=== PATIENT | female | born 1985 ===

== ENCOUNTER 2017-04-25 18:16 | Inpatient (IN) | payer OTHER ==
[~2017-04-25] VITALS: Ht 165.1 cm; Wt 59.9 kg
[2017-04-25] VITALS (15 sets, daily range): BP systolic 102–140; BP diastolic 64–79; PULSE 70–104; RESP 18; TEMP 98.3
[2017-04-25] MEDS: LACTATED RINGER'S 1000 ML INJ 1,000 ML IV SCH ×2 (19:35→21:46)
[2017-04-25] MEDS ORDERED: LACTATED RINGER'S 1000 ML INJ 1,000 ML IV PRN (20:03)
--- NOTE | 2017-04-25 20:05 | HHI.HP ---
History & Physical H&P [facility] OB ED Note (Detail) Patient Name: Magdalene Brooks Unit Number: [id number] Date of : 1985 Patient Status: Admitted Inpatient Attending Doctor: Nishi Good MD HPI HPI Chief Complaint leakage of fluid Date Seen: Apr 25, 2017 Travel History International Travel<30 Days: No Contact w/Intl Traveler<30Days: No Known Affected Area: No History of Present Illness HPI This is a 31y/o at 40w1d who presents to the [facility] with reports of leakage of clear fluid at 3:30p, with contractions q 5-10 minutes apart. She denies vaginal bleeding with reports of active movements. care with Dr. Berkowitz, no records for review, care uncomplicated per patient. Para: 0 : 1 History (Limited) History Past Medical History Narrative Medical Asthma: only rescue inhaler Past Surgical History Narrative Surgical Deviated septum age 21 Family History Family History: Negative Social History Alcohol Use: No Tobacco Use: No Substance Abuse: No Allergies-Medications Allergies-Medications (Allergen,Severity, Reaction): Coded Allergies: No Known Allergies (Unverified , 04/25/17) ROS Review of Systems Except as stated in HPI: all other systems reviewed are Neg Physical Exam Physical Exam Narrative GENERAL: Well-nourished, well-developed patient. SKIN: Warm and dry. HEAD: Normocephalic and atraumatic. EYES: No scleral icterus. No injection or drainage. ENT: No nasal drainage noted. Mucous membranes pink. Airway patent. NECK: Supple, trachea midline. No JVD. CARDIOVASCULAR: Regular rate and rhythm without murmurs, gallops, or rubs. RESPIRATORY: Breath sounds equal bilaterally. No accessory muscle use. BREASTS: Bilateral exam showed no masses , no retractions, no nipple discharge. ABDOMEN/GI: Abdomen soft, non-tender, bowel sounds present, no rebound, no guarding Gravid to 39 weeks size GENITOURINARY: External Genitalia: intact and normal in appearance Cervix: 4/80/-1, per RN Presentation: cephalic Membranes: ruptured Uterine Contractions: q 2-3 minutes apart FHT's: Category: 1 EXTREMITIES: No cyanosis or edema. BACK: Nontender without obvious deformity. No CVA tenderness. NEUROLOGICAL: Awake and alert. Motor and sensory grossly within normal limits. Five out of 5 muscle strength in all muscle groups. Normal speech. Data Data Data Vital Signs Reviewed: Yes Orders Ob (2e) Additional Admit Info (04/25/17 19:17) Vital Signs (Adult) .ON ADMISSION (04/25/17 19:54) ^ Labor Status (04/25/17 19:54) ^ Non Stress Test (04/25/17 19:54) MDM MDM Medical Record Reviewed: No Narrative Course / MDM 31y/o at 40w1d who presents to the [facility] with reports of leakage of clear fluid at 3:30p. -Cat I tracing -GBS neg Plan -Admit for delivery -Dr. Good will try to send records Diagnosis Diagnosis: Primary Impression: Rupture of membranes with clear amniotic fluid Additional Impression: 40 weeks gestation of Anyi Hightower MD Apr 25, 2017 20:02 Anyi Hightower MD Apr 25, 2017 20:05
[2017-04-25] MEDS ORDERED: SODIUM CHLORID 0.9% 500 ML INJ 500 ML IV PRN (20:15)
[2017-04-25] MEDS ORDERED: OXYTOCIN 30 UNITS-500ML PREMIX 500 ML IV ONE (20:15)
[2017-04-25] MEDS ORDERED: MINERAL OIL 10 ML VIAL TOPICAL PRN (20:15)
[2017-04-25] MEDS ORDERED: CITRIC ACID-SODIUM CITRATE LIQ 30 ML UDC PO SCH (20:15)
[2017-04-25] MEDS ORDERED: LIDOCAINE HCL 1% 50 ML VIAL INFIL PRN (20:15)
[2017-04-25] MEDS ORDERED: LIDOCAINE HCL 1% 50 ML VIAL I-DERMAL PRN (20:15)
[2017-04-25] MEDS ORDERED: SODIUM CHLOR 0.9% 1000 ML INJ 1,000 ML IV PRN (20:23)
[2017-04-25 20:24] LABS: AUTOMATED NEUTROPHIL # 11.5 TH/MM3 (1.8-7.7); BASOPHIL # 0.1 TH/MM3 (0-0.2); BASOPHIL % 0.4 % (0.0-2.0); EOSINOPHIL # 0.1 TH/MM3 (0-0.4); EOSINOPHIL % 0.8 % (0.0-4.0); HEMATOCRIT 30.8 % (35.0-46.0); HEMO FLAGS DIFF FINAL; LYMPH % 12.9 % (9.0-44.0); LYMPHOCYTE # 1.8 TH/MM3 (1.0-4.8); MEAN CORPUSCULAR HEMOGLOBIN 28.1 PG (27.0-34.0); MEAN CORPUSCULAR HGB CONC 33.5 % (32.0-36.0); NEUT % 80.9 % (16.0-70.0); PLATELET COUNT 291 TH/MM3 (150-450); RED BLOOD COUNT 3.66 MIL/MM3 (4.00-5.30); RED CELL DISTRIBUTION WIDTH 13.1 % (11.6-17.2); WHITE BLOOD COUNT 14.2 TH/MM3 (4.0-11.0)
[2017-04-25 20:26] LABS: BLOOD, URINE SMALL (NEG); GLUCOSE,URINE NEG (NEG); KETONE, URINE NEG (NEG); NITRITE,URINE NEG (NEG); SQUAMOUS EPITHELIAL CELL URINE 2 /hpf (0-5); URINE COLOR YELLOW (YELLW/STRAW)
[2017-04-25 20:27] LABS: COMMENT (UR) CULTURE INDICATED; CULTURE IF INDICATED CULTURE INDICATED
[2017-04-25] MEDS ORDERED: fentaNYL 2MCG-BUPIV 0.125% INJ 100 ML ONE (21:25)
[2017-04-25] MEDS ORDERED: DO NOT ADMINISTER ANTICOAGULANTS PRN (21:30)
[2017-04-25] MEDS ORDERED: NO SYSTEM NARCOTICS PRN (21:30)
[2017-04-25] MEDS ORDERED: fentaNYL 2MCG-BUPIV 0.125% 100 ML EPIDURAL SCH (21:30)
[2017-04-25] MEDS ORDERED: OXYTOCIN 30 UNITS-500ML PREMIX 500 ML IV SCH (21:45)
[2017-04-25] MEDS ORDERED: ePHEDrine/NS 25 MG/5 ML SYR IV PRN (22:30)
[2017-04-26] VITALS (28 sets, daily range): BP systolic 96–125; BP diastolic 54–82; PULSE 59–121; RESP 18–20; TEMP 98.6–99
[2017-04-26] MEDS: LACTATED RINGER'S 1000 ML INJ 1,000 ML IV SCH (03:14)
[2017-04-26] MEDS ORDERED: PREN29TA PO (04:51)
[2017-04-26] MEDS ORDERED: ONDANSETRON HCL 4 MG/2 ML VIAL ONE (07:21)
--- NOTE | 2017-04-26 08:34 | HHI.DCPOC ---
Discharge Care Plan Diagnosis: (1) (spontaneous vaginal delivery) Your Health Problems Are: Vaginal delivery Report Symptoms to Your Doctor -Temperature above 100.5 degrees -Redness, of incision or excessive or foul smelling drainage -Unusual pain or calf pain -Increased vaginal bleeding -Painful or difficulty urinating -Feelings of extreme sadness or anxiety after 2 weeks Goals to Promote Your Health * To prevent worsening of your condition and complications * To maintain your health at the optimal level Directions to Meet Your Goals Take your medications as prescribed Follow your dietary instruction Follow activity as directed Ensure plenty of rest for recovery Drink fluids for hydration Keep your appointments as scheduled Take your immunizations and boosters as scheduled If your symptoms worsen call your PCP, if no PCP go to Urgent Care Center or Emergency Room Smoking is Dangerous to Your Health. Avoid second hand smoke Call the 24-hour crisis hotline for domestic abuse at Nishi Good MD Apr 26, 2017 08:34
--- NOTE | 2017-04-26 08:38 | PD.OB.DELI ---
Delivery Date: Apr 26, 2017 Anesthesia: Epidural Episiotomy: None Vaginal Delivery: Normal Presentation: Occiput anterior Nuchal Cord: None Delayed cord clamping (45 sec): No Infant: Female One Minute : 8 Five Minute : 8 Weight: 3565g Placenta: Spontaneous delivery Laceration: 1 deg (left labial) Repair: Chromic interrupted Additional Information EBL 300ml Nishi Good MD Apr 26, 2017 08:38
[2017-04-26] MEDS ORDERED: ALUMINUM/MAGNESIUM/SIMETH 30 ML CUP PO PRN (08:45)
[2017-04-26] MEDS ORDERED: WITCH HAZEL 50%/GLYCERIN 12.5% 40 PAD JAR TOPICAL PRN (08:45)
[2017-04-26] MEDS ORDERED: BENZOCAINE 20% TOPICAL SPRAY 60 ML CAN TOPICAL PRN (08:45)
[2017-04-26] MEDS ORDERED: ZOLPIDEM TARTRATE 5 MG TAB PO PRN (08:45)
[2017-04-26] MEDS ORDERED: SODIUM CHLORIDE 0.9% FLUSH 10 ML FLUSH IV FLUSH PRN (08:45)
[2017-04-26] MEDS ORDERED: oxyCODONE/ACETAMINOPHEN 5 MG/325 MG TAB PO PRN (08:45)
[2017-04-26] MEDS ORDERED: ONDANSETRON ODT 4 MG TAB PO PRN (08:45)
[2017-04-26] MEDS ORDERED: DOCUSATE SODIUM 50 MG/SENNA 8.6 MG TAB PO PRN (08:45)
[2017-04-26 08:46] LABS: BLOOD GAS BASE EXCESS -6.6 mmol/L (-2-2); BLOOD GAS O2 HGB SATURATION 73 % (90-100); CORD BLOOD GAS HCO3 18 mmol/L (21-29); CORD BLOOD GAS PCO2 36 mmHG (34-78); CORD BLOOD GAS PH 7.32 (7.14-7.42); CORD BLOOD GAS PO2 37 mmHG (3.0-40.0); DRAW SITE CORD BLOOD; STAT NO
[2017-04-26] MEDS ORDERED: SODIUM CHLORIDE 0.9% FLUSH 10 ML FLUSH IV FLUSH SCH (09:00)
[2017-04-26] MEDS ORDERED: DIPHTH/TETANUS/ACEL PERTUSSIS (BOOSTER) 0.5 ML VIAL/PFS IM ONE (16:00)
[2017-04-26] MEDS ORDERED: MEASLES, MUMPS, RUBELLA VACCINE 0.5 ML VIAL SQ ONE (16:00)
[2017-04-26] MEDS: IBUPROFEN 600 MG TAB PO PRN (17:31)
[2017-04-27] MEDS: IBUPROFEN 600 MG TAB PO PRN ×3 (02:23→15:19)
--- NOTE | 2017-04-27 07:31 | HHI.OB ---
Subjective Post Day: 1 Remarks s/p full term of healthy female Objective Vitals/I&O Vital Signs Date Time Temp Pulse Resp B/P Pulse Ox O2 Delivery O2 Flow Rate FiO2 04/26/17 10:32 59 103/69 04/26/17 10:32 98.9 18 Objective Remarks GENERAL: Well-nourished, well-developed patient. currently. at bedside. CARDIOVASCULAR: Regular rate and rhythm without murmurs, gallops, or rubs. RESPIRATORY: Breath sounds equal bilaterally. No accessory muscle use. ABDOMEN/GI: Abdomen soft, non-tender. Fundus: Firm, non-tender at umbilicus. GENITOURINARY: Light bleeding. EXTREMITIES: No cyanosis or edema, non-tender, without signs of DVT. Medications and IVs Current Medications Medications (Trade) Dose Ordered Sig/Courtney Route Start Time Stop Time Status Last Admin (NS Flush) 2 ml BID IV FLUSH 04/26/17 09:00 (NS Flush) 2 ml UNSCH PRN IV FLUSH 04/26/17 08:45 (Tylenol) 650 mg Q4H PRN PO 04/26/17 08:45 (Motrin) 600 mg Q6H PRN PO 04/26/17 08:45 04/27/17 02:23 (Percocet 5-325 Mg) 1 tab Q4H PRN PO 04/26/17 08:45 (Americaine 20% Top Spr) 1 spray Q4H PRN TOPICAL 04/26/17 08:45 04/26/17 10:31 (Tucks Pads) 1 applic QID PRN TOPICAL 04/26/17 08:45 04/26/17 10:31 (Wendy-Colace) 2 tab Q12H PRN PO 04/26/17 08:45 (Ambien) 5 mg HS PRN PO 04/26/17 08:45 (Mag-Al Plus Susp Liq) 15 ml Q8H PRN PO 04/26/17 08:45 (Zofran Odt) 4 mg Q6H PRN PO 04/26/17 08:45 Assessment/Plan Problem List: (1) (spontaneous vaginal delivery) Assessment and Plan PPD#1 doing well continue routine supportive care if infant cleared today will plan for discharge Discharge Planning routine Alicia Lorenz MD Apr 27, 2017 07:31
[2017-04-27] MEDS ORDERED: IBUP-232 PO (07:32)
[2017-04-27 08:05] VITALS: BP 95/68; PULSE 60; RESP 16; TEMP 97.9
[2017-04-27] MEDS: ACETAMINOPHEN 325 MG TAB PO PRN ×2 (09:39→15:19)
[2017-04-27 14:45] LABS: RAPID PLASMA REAGIN SCREEN NON-REACTIVE (NON-REACTVE)
[2017-04-28] MEDS ORDERED: HEPATITIS B INFANT/ADOLESCENT VACCINE 5 MCG/0.5 ML VIAL IM ONE (09:00)
== END 2017-04-27 18:26 | disposition home or self-care (01) | DRG 775 ==
LOC: HOBED 18:16 → H2EB 19:18 → H1EA 04-26 10:21
PROVIDERS: ADMIT Obstetrics & Gynecology; ATTEND Obstetrics & Gynecology
PROC: 10E0XZZ Delivery of Products of Conception, External Approach (ICD-10-PCS; principal; 2017-04-25)
PROC: 0HQ9XZZ Repair Perineum Skin, External Approach (ICD-10-PCS; 2017-04-25)
PROC: 3E0R3CZ (ICD-10-PCS; 2017-04-25)
PROC: 00HU33Z Insertion of Infusion Device into Spinal Canal, Percutaneous Approach (ICD-10-PCS; 2017-04-25)
DX: O70.0 First degree perineal laceration during delivery (principal); J45.909 Unspecified asthma, uncomplicated; Z37.0 Single live birth; O99.52 Diseases of the respiratory system complicating childbirth; Z3A.40 40 weeks gestation of pregnancy
CPT/HCPCS: 81001; 82805; 84112; 85025; 86592; 86900; 86901; 87086; 90715; J2405; J2590; J7120